=== PATIENT | male | born 1945 | race Caucasian/White ===

== ENCOUNTER → 2021-02-22 | Outpatient (CLI) | payer OTHER ==
--- NOTE | 2021-02-22 15:09 | 2DMMODE ---
[facility] [place] [address] 2 D/M-MODE ECHOCARDIOGRAM Name: OLGA DÍAZ Room #: [id number] Admission: 02/22/21 Attend Phys: Bhanu Mcknight MD Discharge: Date of : 45 Report #: [id number] THIS REPORT FOR: cc: Bhanu Mcknight MD, John L. MD Santiago, Patrick MD [facility] ~ APPROVED REPORT Study performed: 02/22/2021 13:32:18 EXAM: Comprehensive 2D, Doppler, and color-flow Echocardiogram Patient Location: Out-Patient Room #: 2 Status: routine BSA: 1.98 HR: 71 bpm BP: 126/64 mmHg Rhythm: NSR Other Information Study Quality: Good Indications Pre-Op 2D Dimensions RVDd: 40.53 mm IVSd: 9.82 (7-11mm) LVOT Diam: 25.23 (18-24mm) LVDd: 56.03 mm PWd: 10.15 (7-11mm) Ascending Ao: 39.30 (22-36mm) LVDs: 35.72 (25-40mm) Left Atrium: 32.91 (27-40mm) Aortic Root: 33.28 mm IVC: 17.00 mm Volumes Left Atrial Volume (Systole) Single Plane 4CH: 43.90 mL Single Plane 2CH: 61.31 mL LA ESV Index: 30.00 mL/m2 Aortic Valve AoV Peak Meek.: 1.48 m/s AO Peak Gr.: 8.72 mmHg LVOT Max P.92 mmHg LVOT Max V: 0.85 m/s DARIA Vmax: 2.89 cm2 [facility] [address] [address] 2 D/M-MODE ECHOCARDIOGRAM Name: OLGA DÍAZ Room #: REG [facility] [id number] Admission: 02/22/21 Attend Phys: Bhanu Mcknight MD Discharge: Date of : 45 Report #: [id number] AI Vmax: 3.55 m/s AI [place]: 1.33 m/s2 AI PHT: 775.70 ms Mitral Valve E/A Ratio: 0.7 MV Decel. Time: 242.96 ms MV E Max Meek.: 0.63 m/s MV A Meek.: 0.87 m/s MV PHT: 70.46 ms IVRT: 170.70 ms Pulmonary Valve PV Peak Meek.: 1.00 m/s PV Peak Gr.: 3.99 mmHg Pulmonary Vein P Vein S: 0.41 m/s P Vein A: 0.25 m/s P Vein D: 0.32 m/s P Vein A Dur.: 115.3 msec P Vein S/D Ratio: 1.28 Tricuspid Valve TR Peak Meek.: 2.31 m/s TR Peak Gr.: 21.27 mmHg PA Pressure: 26.00 mmHg Left Ventricle The left ventricle is normal size. There is normal LV segmental wall motion. There is normal left ventricular wall thickness. Left ventricular systolic function is normal. The left ventricular ejection fraction is within the normal range. LVEF is 50-55%. Grade I - abnormal relaxation pattern. Right Ventricle The right ventricle is normal size. The right ventricular systolic function is normal. Atria The left atrium size is normal. The right atrium size is normal. Aortic Valve The aortic valve is normal in structure. The Aortic valve is sclerotic. Trace aortic regurgitation. There is no aortic valvular stenosis. Mitral Valve [facility] [address] [place] [address] 2 D/M-MODE ECHOCARDIOGRAM Name: OLGA DÍAZ Room #: REG [facility] [id number] Admission: 02/22/21 Attend Phys: Bhanu Mcknight MD Discharge: Date of : 45 Report #: [id number] The mitral valve is normal in structure. Trace mitral regurgitation. No evidence of mitral valve stenosis. Tricuspid Valve The tricuspid valve is normal in structure. There is trace tricuspid regurgitation. Estimated PAP 26 mmHg. There is no pulmonary hypertension. Pulmonic Valve The pulmonary valve is normal in structure. There is no pulmonic valvular regurgitation. Great Vessels The aortic root is normal in size. IVC is normal in size and collapses >50% with inspiration. Pericardium There is no pericardial effusion. <Conclusion> Normal left ventricular size/wall thickness Ejection fraction 55% Grade 1 diastolic dysfunction Normal atrial size color flow Doppler study was performed of the aortic/mitral/tricuspid/pulmonary valve Trace tricuspid valve insufficiency Normal mitral valve structure and function Trace tricuspid valve insufficiency Pulmonary systolic pressure estimated 26 mmHg No pericardial effusion Normal aortic root size. <ELECTRONICALLY SIGNED> By: Faraz Wetzel MD, FACC 02/22/21 1509 [id number] Faraz Wetzel MD, FACC /INF
== END ==
LOC: CV 13:53
PROVIDERS: ATTEND Internal Medicine
DX: Z01.818 Encounter for other preprocedural examination (principal)